=== PATIENT | female | born 1995 | race Caucasian/White ===

== ENCOUNTER → 2017-09-30 | Day surgery (SDC) | payer OTHER ==
[2017-09-23 11:04] VITALS: BMI 25.0
[~2017-09-30] VITALS: Ht 170.2 cm; Wt 72.7 kg
[~2017-09-30] MED LIST: ALBUAER INH; ATROPINE SULFATE 0.1 MG/ML 5ML SYR IV PRN; CAL1CHW4 PO; ETON1IMP2 IM; EpHEDrine SULFATE INJ 50 MG/ML AMP IV PRN; IBUP-1050 PO; LIDOCAINE HCL 2% 2 ML VIAL (20MG/ML) ONE; MIDAZOLAM HCL 1 MG/ML 2ML VIAL ONE; PROPOFOL IV EMULSION 10 MG/ML 20 ML VIAL IV ONE; SERT50TA PO; SODIUM CHLORIDE 0.9% 500ML 500 ML IV ONE
[2017-09-30 10:03] VITALS: Ht 170.2 cm; Wt 72.7 kg
--- NOTE | 2017-09-30 10:15 | Endo History and Physical ---
History & Physical Date of Service: Sep 30, 2017. Chief Complaint: EPIGASTRIC PAIN Referring Physician: DR JACK SUE History of Present Illness epigastric pain Past Surgical History Hx Cardiac Surgery: No Hx Internal Defibrillator: No Hx Pacemaker: No Hx Abdominal Surgery: No Hx of Implantable Prosthesis: No Hx Post-Op Nausea and Vomiting: Yes (NAUSEA,DIZZY) Hx Cancer Surgery: No Hx Thoracic Surgery: No ( ) Hx Orthopedic: Yes (ORIF FINGERS L HAND-AGE 8) Hx Urinary Tract Surgery: No Family History IBD Social History Smoking Status: Never Smoker Hx Substance Use: No Hx Alcohol Use: No Allergies Coded Allergies: No Known Allergies (Verified , 09/30/17) Current Medications Reported Home Medications Medications Dose Route/Sig Max Daily Dose Days Date Category Rolaids Advanced 1000-200-40 mg (Jaime Carb & Mag Hydrox-Simeth) 1 Chw Chw 1-2 Tab PO PRN 09/23/17 Reported Advil (Ibuprofen) 200 Mg Tab 400 Mg PO PRN 09/23/17 Reported Nexplanon (Etonogestrel) 68 Mg Imp 1 Dose IM 09/23/17 Reported Zoloft (Sertraline HCl) 50 Mg Tab 50 Mg PO HS 09/23/17 Reported Proventil Hfa (Albuterol Sulfate) 108 Mcg/Act Aer 2 Puffs INH PRN 09/23/17 Reported Vital Signs Weight (Kilograms): 72.73 Height (Feet): 5 Height (Inches): 7 Date Time Temp Pulse Resp B/P (MAP) Pulse Ox O2 Delivery O2 Flow Rate FiO2 09/30/17 10:11 37.0 90 18 132/81 (98) 99 Room Air Physical Exam General Appearance: WD/WN, no apparent distress Assessment and Plan EGD today
--- NOTE | 2017-09-30 11:15 | Anesthesiology Progress Note ---
Anesthesia Post Op Note Date & Time Sep 30, 2017 at 11:15 Vital Signs Pain Intensity: 0 Vital Signs Past 12 Hours Date Time Temp Pulse Resp B/P (MAP) Pulse Ox O2 Delivery O2 Flow Rate FiO2 09/30/17 11:12 85 16 114/77 (89) 100 Room Air 09/30/17 10:57 72 16 94/49 (64) 97 Room Air 09/30/17 10:11 37.0 90 18 132/81 (98) 99 Room Air Notes Mental Status: alert / awake / arousable, participated in evaluation Pt Amnestic to Procedure: Yes Nausea / Vomiting: adequately controlled Pain: adequately controlled Airway Patency, RR, SpO2: stable & adequate BP & HR: stable & adequate Hydration State: stable & adequate Anesthetic Complications: no major complications apparent
--- NOTE | 2017-09-30 11:16 | Discharge Instructions ---
Endoscopy Patient Instructions Date / Procedure(s) Performed Sep 30, 2017. EGD Allergy Information Coded Allergies: No Known Allergies (Verified , 09/30/17) Discharge Date / Findings Sep 30, 2017. mild esophagitis and gastritis Medication Instructions Restart Stopped Medication(s): OK to resume home prescriptions. Limit the use of anti-inflammatory medications Start taking omeprazole 20 mg once daily. Provider Instructions Activity Restrictions - No exercising or heavy lifting for 24 hours. - Do not drink alcohol the day of the procedure. - Do not drive a car or operate machinery until the day after the procedure. - Do not make any important decisions or sign important papers in 24 hours after the procedure. Following Day: - Return to full activity which may include returning to work/school. Diet Start your diet with liquids and light foods (jello, soup, juice, toast). Then eat your usual diet if not nauseated. Treatment For Common After Affects For mild abdominal pain, bloating, or excessive gas: - Rest - Eat lightly - Lie on right side Follow-Up Information Follow-up with DR JACK SUE as scheduled Anesthesia Information What You Should Know You have had a procedure that required some medicine to reduce anxiety and discomfort. This treatment is called moderate sedation. After receiving the treatment, you may be sleepy, but you will be able to breathe on your own. The effects of the treatment may last for several hours. Follow these instructions along with Activity/Diet recommendations noted above: * Do NOT do anything where dizziness or clumsiness would be dangerous. * Rest quietly at home today, then you can be up and about tomorrow. * Have a responsible person stay with you the rest of today. * You may have had an I.V. today. If so, you may take the dressing off later today. Recommendations Call your doctor if: * Trouble breathing * Continuous vomiting for more than 24 hours * Temperature above 101 degrees * Severe abdominal pain or bloating * Pain not relieved by pain medicine ordered * There is increased drainage or redness from any incision * A large amount of rectal bleeding greater than 2-3 tablespoons. (If you had a polyp/s removed or have hemorrhoids, a small amount of blood - from the rectum is to be expected.) * You have any unanswered questions or concerns. IN THE EVENT OF A SERIOUS EMERGENCY, GO TO THE NEAREST EMERGENCY ROOM Your discharge instructions were prepared by provider Irasema Damico. Patient Instructions Signature Page Elke Jeter Patient (or Guardian) Signature/Date: I have read and understand the instructions given to me by my caregivers. Caregiver/RN/Doctor Signature/Date: The above-named patient and/or guardian has received patient instructions on this date. + Original Patient Signature Page (only) stays with chart. Please make copy for patient.
[2017-09-30 11:27] VITALS: BP 123/92; PULSE 73; O2SAT 100
--- NOTE | 2017-09-30 12:13 | GI REPORT ---
Procedure Date: 09/30/2017 10:03 AM Procedure: Upper GI endoscopy Indications: Epigastric abdominal pain Medicines: Propofol per Anesthesia Complications: No immediate complications. Estimated blood loss: Minimal. Estimated Blood Loss: Estimated blood loss was minimal. Procedure: Pre-Anesthesia Assessment: - Prior to the procedure, a History and Physical was performed, and patient medications, allergies and sensitivities were reviewed. The patient's tolerance of previous anesthesia was reviewed. - The risks and benefits of the procedure and the sedation options and risks were discussed with the patient. All questions were answered and informed consent was obtained. - Patient identification and proposed procedure were verified prior to the procedure by the physician and the nurse. The procedure was verified in the pre-procedure area in the procedure room. - Mental Status Examination: alert and oriented. Airway Examination: normal oropharyngeal airway and neck mobility. Respiratory Examination: clear to auscultation. CV Examination: normal. Abdominal Examination: bowel sounds present, abdomen soft and non-tender, no masses or organomegaly noted. - ASA Grade Assessment: II - A patient with mild systemic disease. After obtaining informed consent, the endoscope was passed under direct vision. Throughout the procedure, the patient's blood pressure, pulse, and oxygen saturations were monitored continuously. The scope was introduced through the mouth, and advanced to the third part of duodenum. The upper GI endoscopy was accomplished without difficulty. The patient tolerated the procedure well. Findings: Mild inflammation characterized by erythema was found in the stomach. Biopsies were taken with a cold forceps for histology. Verification of patient identification for the specimen was done by the physician and nurse using the patient's name and date. Estimated blood loss was minimal. The examined duodenum was normal. Savary-Altamirano Grade I (single erosion or exudate, oval or linear, single fold) esophagitis with no bleeding was found at the gastroesophageal junction. Impression: - Mild esophagitis. - Gastritis. Biopsied. - Normal examined duodenum. Recommendation: - Await pathology results. - Use a proton pump inhibitor PO daily. - Return to primary care physician as previously scheduled. - Discharge patient to home. Irasema Damico D.O. Irasema Damico DO 09/30/2017 11:10:08 AM This report has been signed electronically. Note Initiated On: 09/30/2017 10:03 AM I attest to the content of the Intraoperative Record and orders documented therein, exceptions below
== END | disposition home or self-care (01) ==
LOC: C.GI 09:45
PROVIDERS: ATTEND Internal Medicine
DX: K20.9 Esophagitis, unspecified (principal); K29.50 Unspecified chronic gastritis without bleeding; Z83.79 Family history of other diseases of the digestive system; Z79.899 Other long term (current) drug therapy

== ENCOUNTER → 2017-10-29 | Outpatient (CLI) | payer OTHER ==
[~2017-10-29] MED LIST changes: -ATROPINE SULFATE 0.1 MG/ML 5ML SYR IV PRN; -EpHEDrine SULFATE INJ 50 MG/ML AMP IV PRN; -LIDOCAINE HCL 2% 2 ML VIAL (20MG/ML) ONE; -MIDAZOLAM HCL 1 MG/ML 2ML VIAL ONE; -PROPOFOL IV EMULSION 10 MG/ML 20 ML VIAL IV ONE; +SINCALIDE IV ONE; -SODIUM CHLORIDE 0.9% 500ML 500 ML IV ONE; +SODIUM CHLORIDE 0.9% IV ONE
--- NOTE | 2017-10-29 10:47 | DIAGNOSTIC IMAGING REPORT ---
ABDOMINAL ULTRASOUND, RIGHT UPPER QUADRANT HISTORY: Right upper quadrant abdominal pain. COMPARISON: None. FINDINGS: Liver is sonographically normal. There is no biliary ductal dilatation. The common bile duct measures 4 mm in caliber. The gallbladder is normal. There are no gallstones. The pancreas is within normal limits. There is no right hydronephrosis. IMPRESSION: No significant abnormality identified within the right upper quadrant. Electronically signed by: Milind Eng M.D. 10/29/2017 10:45 AM Dictated Date/Time: 10/29/2017 10:44 AM
--- NOTE | 2017-10-29 12:48 | DIAGNOSTIC IMAGING REPORT ---
NUCLEAR MEDICINE HEPATOBILIARY STUDY WITH EJECTION FRACTION ANALYSIS CLINICAL HISTORY: R10.11 ] quadrant abdominal pain COMPARISON STUDY: No previous studies for comparison. FINDINGS: The patient was injected with 5.6 mCi of technetium 99m Choletec. Anterior imaging was performed. Hepatic excretion appears unremarkable. The gallbladder was first visualized on the 10 minute image. At 1 hour, the patient was administered 1.5 mcg of intravenous sincalide utilizing a 30 minute infusion. The gallbladder ejection fraction is normal measuring 89%. IMPRESSION: Normal study. No evidence of cystic duct obstruction. Normal gallbladder ejection fraction of 89%. Electronically signed by: Daniel Shelby M.D. 10/29/2017 12:46 PM Dictated Date/Time: 10/29/2017 12:45 PM
== END | disposition home or self-care (01) ==
LOC: C.ULTR 09:38
PROVIDERS: ATTEND Internal Medicine
DX: R10.11 Right upper quadrant pain (principal)

== ENCOUNTER → 2017-11-19 | Day surgery (SDC) | payer OTHER ==
[~2017-11-19] VITALS: Ht 170.2 cm; Wt 76.4 kg
[~2017-11-19] MED LIST changes: +ACET-749 PO; +BNT20; +DICY10CA12 PO; +LIDOCAINE HCL 2% 2 ML VIAL (20MG/ML) ONE; +PANT40TA PO; +PROPOFOL IV EMULSION 10 MG/ML 20 ML VIAL IV ONE; -SINCALIDE IV ONE; -SODIUM CHLORIDE 0.9% IV ONE
[2017-11-19 11:10] VITALS: Ht 170.2 cm; Wt 76.4 kg
--- NOTE | 2017-11-19 11:12 | Endo History and Physical ---
History & Physical Date of Service: Nov 19, 2017. Chief Complaint: abd pain; diarrhea Referring Physician: Dr. Del Real History of Present Illness as above Past Surgical History Hx Cardiac Surgery: No Hx Internal Defibrillator: No Hx Pacemaker: No Hx Abdominal Surgery: No Hx Post-Op Nausea and Vomiting: Yes (NAUSEA,DIZZY) Hx Cancer Surgery: No Hx Thoracic Surgery: No ( ) Hx Orthopedic: Yes (ORIF FINGERS L HAND-AGE 8) Hx Urinary Tract Surgery: No Social History Smoking Status: Never Smoker Hx Substance Use: No Hx Alcohol Use: No Allergies Coded Allergies: No Known Allergies (Verified , 09/30/17) Current Medications Reported Home Medications Medications Dose Route/Sig Max Daily Dose Days Date Category Rolaids Advanced 1000-200-40 mg (Jaime Carb & Mag Hydrox-Simeth) 1 Chw Chw 1-2 Tab PO PRN 09/23/17 Reported Advil (Ibuprofen) 200 Mg Tab 400 Mg PO PRN 09/23/17 Reported Nexplanon (Etonogestrel) 68 Mg Imp 1 Dose IM 09/23/17 Reported Zoloft (Sertraline HCl) 50 Mg Tab 50 Mg PO HS 09/23/17 Reported Proventil Hfa (Albuterol Sulfate) 108 Mcg/Act Aer 2 Puffs INH PRN 09/23/17 Reported Physical Exam General Appearance: WD/WN, no apparent distress Assessment and Plan colonoscopy today
--- NOTE | 2017-11-19 12:29 | Discharge Instructions ---
Endoscopy Patient Instructions Date / Procedure(s) Performed Nov 19, 2017. Colonoscopy Allergy Information Coded Allergies: No Known Allergies (Verified , 09/30/17) Discharge Date / Findings Nov 19, 2017. normal colon Medication Instructions Restart Stopped Medication(s): OK to resume home medications as above Provider Instructions Activity Restrictions - No exercising or heavy lifting for 24 hours. - Do not drink alcohol the day of the procedure. - Do not drive a car or operate machinery until the day after the procedure. - Do not make any important decisions or sign important papers in 24 hours after the procedure. Following Day: - Return to full activity which may include returning to work/school. Diet Start your diet with liquids and light foods (jello, soup, juice, toast). Then eat your usual diet if not nauseated. Treatment For Common After Affects For mild abdominal pain, bloating, or excessive gas: - Rest - Eat lightly - Lie on right side Follow-Up Information Follow-up with Dr. Khadar Del Real as scheduled Anesthesia Information What You Should Know You have had a procedure that required some medicine to reduce anxiety and discomfort. This treatment is called moderate sedation. After receiving the treatment, you may be sleepy, but you will be able to breathe on your own. The effects of the treatment may last for several hours. Follow these instructions along with Activity/Diet recommendations noted above: * Do NOT do anything where dizziness or clumsiness would be dangerous. * Rest quietly at home today, then you can be up and about tomorrow. * Have a responsible person stay with you the rest of today. * You may have had an I.V. today. If so, you may take the dressing off later today. Recommendations Call your doctor if: * Trouble breathing * Continuous vomiting for more than 24 hours * Temperature above 101 degrees * Severe abdominal pain or bloating * Pain not relieved by pain medicine ordered * There is increased drainage or redness from any incision * A large amount of rectal bleeding greater than 2-3 tablespoons. (If you had a polyp/s removed or have hemorrhoids, a small amount of blood - from the rectum is to be expected.) * You have any unanswered questions or concerns. IN THE EVENT OF A SERIOUS EMERGENCY, GO TO THE NEAREST EMERGENCY ROOM Your discharge instructions were prepared by provider Irasema Damico. Patient Instructions Signature Page Elke Jeter Patient (or Guardian) Signature/Date: I have read and understand the instructions given to me by my caregivers. Caregiver/RN/Doctor Signature/Date: The above-named patient and/or guardian has received patient instructions on this date. + Original Patient Signature Page (only) stays with chart. Please make copy for patient.
--- NOTE | 2017-11-19 12:43 | GI REPORT ---
Procedure Date: 11/19/2017 12:30 PM Procedure: Colonoscopy Indications: Generalized abdominal pain, Diarrhea Medicines: Propofol per Anesthesia Complications: No immediate complications. Estimated blood loss: Minimal. Estimated Blood Loss: Estimated blood loss was minimal. Procedure: Pre-Anesthesia Assessment: - Prior to the procedure, a History and Physical was performed, and patient medications, allergies and sensitivities were reviewed. The patient's tolerance of previous anesthesia was reviewed. - The risks and benefits of the procedure and the sedation options and risks were discussed with the patient. All questions were answered and informed consent was obtained. - Patient identification and proposed procedure were verified prior to the procedure by the physician and the nurse. The procedure was verified in the pre-procedure area in the procedure room. - Mental Status Examination: alert and oriented. Airway Examination: normal oropharyngeal airway and neck mobility. Respiratory Examination: clear to auscultation. CV Examination: normal. Abdominal Examination: bowel sounds present, abdomen soft and non-tender, no masses or organomegaly noted. - ASA Grade Assessment: II - A patient with mild systemic disease. After I obtained informed consent, the scope was passed under direct vision. Throughout the procedure, the patient's blood pressure, pulse, and oxygen saturations were monitored continuously. The scope was introduced through the anus and advanced to the terminal ileum. The colonoscopy was performed without difficulty. The patient tolerated the procedure well. The quality of the bowel preparation was good. Findings: The perianal and digital rectal examinations were normal. Pertinent negatives include normal sphincter tone and no palpable rectal lesions. The terminal ileum appeared normal. The colon (entire examined portion) appeared normal. Biopsies for histology were taken with a cold forceps from the right colon and left colon for evaluation of microscopic colitis. Verification of patient identification for the specimen was done by the physician and nurse using the patient's name and date. Estimated blood loss was minimal. The retroflexed view of the distal rectum and anal verge was normal and showed no anal or rectal abnormalities. Impression: - The examined portion of the ileum was normal. - The entire examined colon is normal. Biopsied. - The distal rectum and anal verge are normal on retroflexion view. Recommendation: - Await pathology results. - Discharge patient to home. Irasema Damico D.O. Irasema Damico, 11/19/2017 12:42:44 PM This report has been signed electronically. Note Initiated On: 11/19/2017 12:30 PM I attest to the content of the Intraoperative Record and orders documented therein, exceptions below
[2017-11-19 12:55] VITALS: BP 117/81; PULSE 61; O2SAT 100
--- NOTE | 2017-11-19 13:14 | Anesthesiology Progress Note ---
Anesthesia Post Op Note Date & Time Nov 19, 2017 at 13:14 Vital Signs Vital Signs Past 12 Hours Date Time Temp Pulse Resp B/P (MAP) Pulse Ox O2 Delivery O2 Flow Rate FiO2 11/19/17 12:55 61 18 117/81 (93) 100 Room Air 11/19/17 12:40 58 18 102/74 (83) 100 Room Air 11/19/17 12:25 66 18 114/63 (80) 94 Room Air 11/19/17 11:22 36.6 80 18 140/83 (102) 100 Room Air Notes Mental Status: alert / awake / arousable, participated in evaluation Pt Amnestic to Procedure: Yes Nausea / Vomiting: adequately controlled Pain: adequately controlled Airway Patency, RR, SpO2: stable & adequate BP & HR: stable & adequate Hydration State: stable & adequate Anesthetic Complications: no major complications apparent
== END | disposition home or self-care (01) ==
LOC: C.GI 10:50
PROVIDERS: ATTEND Internal Medicine
DX: R10.84 Generalized abdominal pain (principal); R19.7 Diarrhea, unspecified; J45.909 Unspecified asthma, uncomplicated